=== PATIENT | male | born 1980 | race Caucasian/White ===

== ENCOUNTER 2017-12-26 13:02 | Inpatient (IN) | payer BC, OTHER ==
[~2017-12-26] VITALS: Ht 180.3 cm; Wt 61.2 kg
[2017-12-26 22:00] VITALS: BP 125/81
[2017-12-26] MEDS ORDERED: ONDANSETRON 4 MG/2 ML VIAL IM PRN (22:15)
[2017-12-26] MEDS ORDERED: LORAZEPAM 1 MG TABLET PO PRN ×2 (22:15)
[2017-12-26] MEDS ORDERED: ONDANSETRON ODT 4 MG TAB.RAPDIS SL PRN (22:15)
[2017-12-26] MEDS ORDERED: LOPERAMIDE HCL 2 MG CAPSULE PO PRN ×2 (22:15)
[2017-12-26] MEDS ORDERED: LORAZEPAM 2 MG/1 ML VIAL IM PRN (22:15)
[2017-12-26] MEDS ORDERED: CLONIDINE HCL 0.1 MG TABLET PO PRN (22:15)
[2017-12-26] MEDS ORDERED: THIAMINE HCL 200 MG/2 ML VIAL IM ONE (22:15)
[2017-12-26] MEDS ORDERED: HYDROXYZINE PAMOATE 25 MG CAPSULE PO PRN (22:15)
[2017-12-26] MEDS ORDERED: MIRALAX 17 GM POWD.PACK PO PRN (22:15)
[2017-12-26] MEDS ORDERED: diphenhydrAMINE 50 MG CAPSULE PO PRN (22:15)
[2017-12-26] MEDS ORDERED: MAG HYDROX/AL HYDROX/SIMETH 30 ML LIQUID UDC PO PRN (22:15)
[2017-12-26] MEDS ORDERED: IBUPROFEN 600 MG TABLET PO PRN (22:15)
[2017-12-26] MEDS ORDERED: MAGNESIUM HYDROXIDE 30 ML LIQUID UDC PO PRN (22:15)
[2017-12-26 22:28] LABS: BASOPHILS # (AUTO) 0.1 K/uL (0.0-8.0); BASOPHILS % (AUTO) 1.1 % (0.0-2.0); EOSINOPHILS # (AUTO) 0.1 K/uL (0.0-0.7); EOSINOPHILS % (AUTO) 1.2 % (0.0-7.0); HEMATOCRIT 35.9 % (36.7-47.1); HEMOGLOBIN 12.3 g/dL (12.5-16.3); LYMPHOCYTES # (AUTO) 2.3 K/uL (20.0-40.0); LYMPHOCYTES % (AUTO) 29.3 % (20.5-51.5); MEAN CORPUSCULAR HEMOGLOBIN 37.3 uug (23.8-33.4); MEAN CORPUSCULAR HGB CONC 34 g/dL (32.5-36.3); MONOCYTES # (AUTO) 0.4 K/uL (2.0-10.0); MONOCYTES % (AUTO) 5.2 % (0.0-11.0); NEUTROPHILS # (AUTO) 5.1 K/uL (1.8-8.9); NEUTROPHILS % (AUTO) 63.2 % (38.5-71.5); PLATELET COUNT (AUTO) 217 K/uL (152-348)
[2017-12-26 22:30] VITALS: BP 115/92
[2017-12-26 22:39] LABS: ETHANOL 55 MG/DL (0-0)
[2017-12-26 22:41] LABS: *AMPHETAMINE, URINE NEGATIVE (NEGATIVE); *BARBITURATE, URINE NEGATIVE (NEGATIVE); *CANNABINOID, URINE NEGATIVE (NEGATIVE); *COCCAINE, URINE NEGATIVE (NEGATIVE); *OPIATE, URINE NEGATIVE (NEGATIVE); *PHENCYCLIDINE SCREEN,URINE NEGATIVE (NEGATIVE)
[2017-12-26 22:56] LABS: THYROID STIMULATING HORMONE 2.508 mIU/mL (0.358-3.740)
[2017-12-26 22:59] LABS: ALANINE AMINOTRANSFERASE 35 U/L (16-63); ALKALINE PHOSPHATASE 190 U/L (50-136); AMYLASE 39 U/L (25-115); ASPARTATE AMINOTRANSFERASE 66 U/L (15-37); BILIRUBIN,TOTAL 0.5 mg/dL (0.2-1.0); CARBON DIOXIDE 23 mmol/L (21-32); CHLORIDE 103 mmol/L (98-107); CREATININE 0.6 mg/dL (0.6-1.3); GLUCOSE 97 mg/dL (74-106); LIPASE 73 U/L (73-393); MAGNESIUM 1.4 mg/dL (1.8-2.4); POTASSIUM 3.2 mmol/L (3.5-5.1); TOTAL PROTEIN, SERUM 7.1 g/dL (6.4-8.2); UREA NITROGEN, BLOOD 4 mg/dL (7-18)
[2017-12-26] MEDS ORDERED: KETOROLAC TROMETHAMINE 30 MG INJ IM ONE (23:15)
[2017-12-26] MEDS ORDERED: MAGNESIUM OXIDE 400 MG TABLET PO ONE (23:30)
[2017-12-26] MEDS ORDERED: POTASSIUM CHLORIDE 20 MEQ TAB.PRT.SR PO ONE (23:30)
[2017-12-27 00:40] VITALS: BP 138/88
[2017-12-27 04:30] VITALS: BP 108/67
[2017-12-27 08:30] VITALS: BP 85/49
[2017-12-27] MEDS ORDERED: TUBERCULIN,PURIF.PROT.DERIV. 5 TU/0.1 ML TEST ID ONE (09:00)
[2017-12-27] MEDS: THIAMINE HCL 100 MG TABLET PO SCH (09:50)
[2017-12-27] MEDS: FOLIC ACID 1 MG TABLET PO SCH (09:50)
[2017-12-27] MEDS: MULTIVITAMINS,THERAPEUTIC TABLET PO SCH (09:50)
[2017-12-27] MEDS ORDERED: 5 DAY TAPER VALIUM-SERENITY PROTOCOL PO PRN (10:45)
[2017-12-27 12:00] VITALS: BP 115/75
[2017-12-27] MEDS: DIAZEPAM 10 MG TABLET PO SCH ×3 (12:16→20:42)
[2017-12-27] MEDS: ACETAMINOPHEN 325 MG TABLET PO PRN ×2 (12:21→20:42)
[2017-12-27 16:00] VITALS: BP 112/73
[2017-12-27] MEDS: KETOROLAC TROMETHAMINE 30 MG INJ IM PRN (16:17)
[2017-12-27 17:12] LABS: BASOPHILS % (AUTO) 0.7 % (0.0-2.0); EOSINOPHILS # (AUTO) 0.1 K/uL (0.0-0.7); EOSINOPHILS % (AUTO) 1.6 % (0.0-7.0); HEMOGLOBIN 10.7 g/dL (12.5-16.3); LYMPHOCYTES # (AUTO) 1.6 K/uL (20.0-40.0); LYMPHOCYTES % (AUTO) 25.3 % (20.5-51.5); MEAN CORPUSCULAR HEMOGLOBIN 37.9 uug (23.8-33.4); MEAN CORPUSCULAR HGB CONC 35 g/dL (32.5-36.3); MEAN CORPUSCULAR VOLUME 109.2 fL (73.0-96.2); MONOCYTES # (AUTO) 0.4 K/uL (2.0-10.0); MONOCYTES % (AUTO) 6.2 % (0.0-11.0); NEUTROPHILS # (AUTO) 4.3 K/uL (1.8-8.9); NEUTROPHILS % (AUTO) 66.2 % (38.5-71.5); PLATELET COUNT (AUTO) 174 K/uL (152-348); RED BLOOD CELL COUNT(AUTO) 2.84 MIL/uL (4.06-5.63); WHITE BLOOD COUNT (AUTO) 6.5 K/uL (3.6-10.2)
[2017-12-27 17:28] LABS: BILIRUBIN,TOTAL 0.4 mg/dL (0.2-1.0); CREATININE 0.7 mg/dL (0.6-1.3); MAGNESIUM 1.3 mg/dL (1.8-2.4); TOTAL PROTEIN, SERUM 5.8 g/dL (6.4-8.2)
[2017-12-27] MEDS ORDERED: MAGNESIUM OXIDE 400 MG TABLET PO ONE (18:00)
[2017-12-27 20:00] VITALS: BP 109/68
[2017-12-28] VITALS: BP 111/77
[2017-12-28] MEDS: KETOROLAC TROMETHAMINE 30 MG INJ IM PRN ×4 (01:09→20:42)
[2017-12-28 04:00] VITALS: BP 103/75
[2017-12-28 08:00] VITALS: BP 103/78
[2017-12-28] MEDS: THIAMINE HCL 100 MG TABLET PO SCH (08:06)
[2017-12-28] MEDS: ACETAMINOPHEN 325 MG TABLET PO PRN ×2 (08:06→17:50)
[2017-12-28] MEDS: MULTIVITAMINS,THERAPEUTIC TABLET PO SCH (08:06)
[2017-12-28] MEDS: DIAZEPAM 10 MG TABLET PO SCH ×3 (08:06→20:41)
[2017-12-28] MEDS: FOLIC ACID 1 MG TABLET PO SCH (08:06)
[2017-12-28 08:08] LABS: HEPATITIS B SURFACE AG Negative (Negative)
[2017-12-28 12:00] VITALS: BP 118/70
[2017-12-28] MEDS ORDERED: TRAZODONE 50 MG TABLET PO PRN (14:45)
[2017-12-28 15:07] LABS: BASOPHILS # (AUTO) 0.1 K/uL (0.0-8.0); BASOPHILS % (AUTO) 1.3 % (0.0-2.0); EOSINOPHILS # (AUTO) 0.2 K/uL (0.0-0.7); EOSINOPHILS % (AUTO) 2.4 % (0.0-7.0); HEMATOCRIT 35.2 % (36.7-47.1); LYMPHOCYTES # (AUTO) 2.3 K/uL (20.0-40.0); LYMPHOCYTES % (AUTO) 28.2 % (20.5-51.5); MEAN CORPUSCULAR HEMOGLOBIN 37.7 uug (23.8-33.4); MEAN CORPUSCULAR HGB CONC 34 g/dL (32.5-36.3); MEAN CORPUSCULAR VOLUME 110.4 fL (73.0-96.2); MONOCYTES # (AUTO) 0.4 K/uL (2.0-10.0); MONOCYTES % (AUTO) 4.8 % (0.0-11.0); NEUTROPHILS # (AUTO) 5.1 K/uL (1.8-8.9); NEUTROPHILS % (AUTO) 63.3 % (38.5-71.5); PLATELET COUNT (AUTO) 194 K/uL (152-348); RED BLOOD CELL COUNT(AUTO) 3.19 MIL/uL (4.06-5.63)
[2017-12-28 15:10] LABS: CARBON DIOXIDE 27 mmol/L (21-32); CHLORIDE 105 mmol/L (98-107); CREATININE 0.6 mg/dL (0.6-1.3); GLUCOSE 111 mg/dL (74-106); MAGNESIUM 1.4 mg/dL (1.8-2.4); POTASSIUM 3.8 mmol/L (3.5-5.1); UREA NITROGEN, BLOOD 10 mg/dL (7-18)
[2017-12-28 16:00] VITALS: BP 102/87
[2017-12-28] MEDS ORDERED: MAGNESIUM OXIDE 400 MG TABLET PO ONE (16:15)
[2017-12-28 20:00] VITALS: BP 130/85
[2017-12-29] VITALS: BP 112/82
[2017-12-29] MEDS: ACETAMINOPHEN 325 MG TABLET PO PRN ×2 (00:23→07:56)
[2017-12-29 04:00] VITALS: BP 129/80
[2017-12-29] MEDS: DICYCLOMINE HCL 20 MG TABLET PO PRN (07:56)
[2017-12-29 08:00] VITALS: BP 92/62
[2017-12-29] MEDS: THIAMINE HCL 100 MG TABLET PO SCH (08:01)
[2017-12-29] MEDS: FOLIC ACID 1 MG TABLET PO SCH (08:01)
[2017-12-29] MEDS: MULTIVITAMINS,THERAPEUTIC TABLET PO SCH (08:01)
[2017-12-29] MEDS: DIAZEPAM 5 MG TABLET PO SCH ×4 (08:01→21:23)
[2017-12-29 12:00] VITALS: BP 112/76
[2017-12-29] MEDS: KETOROLAC TROMETHAMINE 30 MG INJ IM PRN ×2 (12:25→21:22)
[2017-12-29 16:00] VITALS: BP 114/72
[2017-12-29 16:50] LABS: BILIRUBIN,TOTAL 0.3 mg/dL (0.2-1.0); CREATININE 0.7 mg/dL (0.6-1.3); MAGNESIUM 1.3 mg/dL (1.8-2.4); POTASSIUM 4.5 mmol/L (3.5-5.1); TOTAL PROTEIN, SERUM 5.7 g/dL (6.4-8.2)
[2017-12-29 20:00] VITALS: BP 126/90
[2017-12-29] MEDS ORDERED: MAGNESIUM OXIDE 400 MG TABLET PO ONE (21:00)
[2017-12-29] MEDS: TRAZODONE 100 MG TABLET PO PRN (21:23)
[2017-12-30 08:00] VITALS: BP 122/77
[2017-12-30] MEDS: MULTIVITAMINS,THERAPEUTIC TABLET PO SCH (08:08)
[2017-12-30] MEDS: THIAMINE HCL 100 MG TABLET PO SCH (08:08)
[2017-12-30] MEDS: FOLIC ACID 1 MG TABLET PO SCH (08:08)
[2017-12-30] MEDS: DIAZEPAM 5 MG TABLET PO SCH ×3 (08:08→20:53)
[2017-12-30] MEDS: KETOROLAC TROMETHAMINE 30 MG INJ IM PRN ×2 (10:14→20:52)
[2017-12-30 12:00] VITALS: BP 145/89
[2017-12-30 16:00] VITALS: BP 141/92
[2017-12-30 20:00] VITALS: BP 132/87
[2017-12-30] MEDS: TRAZODONE 100 MG TABLET PO PRN (20:53)
[2017-12-31 08:00] VITALS: BP 94/62
[2017-12-31] MEDS: FOLIC ACID 1 MG TABLET PO SCH (09:04)
[2017-12-31] MEDS: DIAZEPAM 5 MG TABLET PO SCH ×2 (09:04→20:28)
[2017-12-31] MEDS: MULTIVITAMINS,THERAPEUTIC TABLET PO SCH (09:04)
[2017-12-31] MEDS: THIAMINE HCL 100 MG TABLET PO SCH (09:04)
[2017-12-31 12:00] VITALS: BP 129/83
[2017-12-31] MEDS: KETOROLAC TROMETHAMINE 30 MG INJ IM PRN ×2 (14:19→20:30)
[2017-12-31 16:00] VITALS: BP 131/90
[2017-12-31 20:00] VITALS: BP 138/92
[2017-12-31] MEDS: DICYCLOMINE HCL 20 MG TABLET PO PRN (20:28)
[2017-12-31] MEDS: TRAZODONE 100 MG TABLET PO PRN (20:29)
[2017-12-31 21:02] LABS: BASOPHILS # (AUTO) 0.1 K/uL (0.0-8.0); EOSINOPHILS # (AUTO) 0.1 K/uL (0.0-0.7); EOSINOPHILS % (AUTO) 1.8 % (0.0-7.0); HEMATOCRIT 31.9 % (36.7-47.1); HEMOGLOBIN 11.1 g/dL (12.5-16.3); LYMPHOCYTES # (AUTO) 1.8 K/uL (20.0-40.0); LYMPHOCYTES % (AUTO) 24.2 % (20.5-51.5); MEAN CORPUSCULAR HEMOGLOBIN 38.5 uug (23.8-33.4); MEAN CORPUSCULAR HGB CONC 35 g/dL (32.5-36.3); MEAN CORPUSCULAR VOLUME 110.4 fL (73.0-96.2); MONOCYTES # (AUTO) 0.4 K/uL (2.0-10.0); MONOCYTES % (AUTO) 5.5 % (0.0-11.0); NEUTROPHILS % (AUTO) 67.5 % (38.5-71.5); PLATELET COUNT (AUTO) 183 K/uL (152-348); RED BLOOD CELL COUNT(AUTO) 2.89 MIL/uL (4.06-5.63); WHITE BLOOD COUNT (AUTO) 7.4 K/uL (3.6-10.2)
[2017-12-31] MEDS ORDERED: MAGNESIUM OXIDE 400 MG TABLET PO ONE (21:30)
[2018-01-01] MEDS: KETOROLAC TROMETHAMINE 30 MG INJ IM PRN ×3 (04:10→22:22)
[2018-01-01 04:14] VITALS: BP 117/80
[2018-01-01 08:00] VITALS: BP 102/60
[2018-01-01] MEDS: MULTIVITAMINS,THERAPEUTIC TABLET PO SCH (08:45)
[2018-01-01] MEDS: FOLIC ACID 1 MG TABLET PO SCH (08:45)
[2018-01-01] MEDS: DICYCLOMINE HCL 20 MG TABLET PO PRN ×2 (08:45→22:20)
[2018-01-01] MEDS: THIAMINE HCL 100 MG TABLET PO SCH (08:45)
[2018-01-01] MEDS ORDERED: TRAZODONE 100 MG TABLET PO PRN (09:00)
[2018-01-01 12:00] VITALS: BP 117/78
[2018-01-01] MEDS ORDERED: IBUP-1955 PO (13:43)
[2018-01-01] MEDS ORDERED: DICY20TA28 PO (13:43)
[2018-01-01] MEDS ORDERED: TRAZ-214 PO (13:43)
[2018-01-01] MEDS: MAGNESIUM OXIDE 250 MG TABLET PO SCH (14:45)
[2018-01-01 16:00] VITALS: BP 128/79
[2018-01-01 20:00] VITALS: BP 114/69
[2018-01-01] MEDS ORDERED: MAGNESIUM OXIDE 400 MG TABLET PO ONE (22:45)
[2018-01-02] VITALS: BP 97/57
[2018-01-02 04:00] VITALS: BP 102/61
[2018-01-02] MEDS: THIAMINE HCL 100 MG TABLET PO SCH (08:25)
[2018-01-02] MEDS: MULTIVITAMINS,THERAPEUTIC TABLET PO SCH (08:25)
[2018-01-02] MEDS: MAGNESIUM OXIDE 250 MG TABLET PO SCH (08:25)
[2018-01-02] MEDS: FOLIC ACID 1 MG TABLET PO SCH (08:25)
[2018-01-02] MEDS: KETOROLAC TROMETHAMINE 30 MG INJ IM PRN (08:30)
[2018-01-02 08:40] VITALS: BP 108/69
== END 2018-01-02 09:42 | disposition other institution (70) | DRG 895 ==
LOC: SRC 21:23
PROVIDERS: ADMIT Family Medicine Addiction Medicine; ATTEND Family Medicine Addiction Medicine
PROC: HZ2ZZZZ Detoxification Services for Substance Abuse Treatment (ICD-10-PCS; principal; 2017-12-26)
PROC: HZ41ZZZ Group Counseling for Substance Abuse Treatment, Behavioral (ICD-10-PCS; 2017-12-30)
DX: F10.230 Alcohol dependence with withdrawal, uncomplicated (principal); K86.1 Other chronic pancreatitis; Y90.2 Blood alcohol level of 40-59 mg/100 ml; F14.10 Cocaine abuse, uncomplicated; Z90.49 Acquired absence of other specified parts of digestive tract; F17.210 Nicotine dependence, cigarettes, uncomplicated; E83.42 Hypomagnesemia; D64.9 Anemia, unspecified; G47.00 Insomnia, unspecified
CPT/HCPCS: 36415; 70030-TC; 80307; 83690; 83735; 84443; 85025; 85610; 86592; 86705; 86803; 87340; 87806; G0480; J1885; Q0163